=== PATIENT | male | born 1930 | race Caucasian/White ===

== ENCOUNTER 2017-01-16 15:04 | Emergency (ER) | payer MEDICARE, OTHER ==
[~2017-01-16 15:04] MED LIST: ALLO100T PO; AMLO10TA2 PO; ATOR20TA15 PO; FINA5TAB2 PO; HYDR25TA5 PO; LEVO88TA2 PO; LOSA100T PO; PROS5TAB PO
== END 2017-01-16 15:20 | disposition left against medical advice (07) ==
LOC: PHED 15:04
DX: Z53.21 Procedure and treatment not carried out due to patient leaving prior to being seen by health care provider (principal)
CPT/HCPCS: 99281